=== PATIENT | male | born 1975 | race Caucasian/White ===

== ENCOUNTER → 2021-04-05 10:17 | Outpatient (BNVA) | payer BC, SELFPAY | PROVIDERS: PCP Internal Medicine; Visit Provider Nurse Practitioner Family ==

== ENCOUNTER → 2021-05-21 14:51 | Outpatient (BNVA) | payer BC, SELFPAY | PROVIDERS: PCP Internal Medicine; Visit Provider Nurse Practitioner Family ==

== ENCOUNTER 2021-07-16 08:47 | Outpatient (REF) | payer BC, SELFPAY ==
--- NOTE | ~2021-07-16 | MR_ITS ---
MRI OF THE BRAIN WITHOUT IV CONTRAST INDICATION: Chronic migraine without aura. COMPARISON: None available. TECHNIQUE: Multiplanar multisequence MR imaging of the brain was obtained without IV contrast. FINDINGS: There is no hydrocephalus, extra-axial surface collection, or herniation. No parenchymal signal abnormality. The major flow voids at the skull base are preserved. There is no acute infarct on diffusion-weighted imaging. There is no intracranial hemorrhage on the gradient recalled echo acquisition. The midline structures are normal. The cerebellar tonsils are normally positioned. The cerebellum and brainstem are normal. The craniocervical junction is normal. Osseous marrow signal intensity is homogenous. The visualized soft tissues are unremarkable. MR/MR head/brain wo con IMPRESSION: Unremarkable noncontrast MRI of the brain.
== END 2021-07-16 08:48 | disposition home or self-care (01) ==
LOC: HO.MRI 08:47
PROVIDERS: Visit Provider Nurse Practitioner Family
DX: G43.709 Chronic migraine without aura, not intractable, without status migrainosus (principal)
CPT/HCPCS: 70551

== ENCOUNTER → 2021-08-19 14:50 | Outpatient (BNVA) | payer BC, SELFPAY | PROVIDERS: PCP Internal Medicine; Visit Provider Nurse Practitioner Family | DX: G43.709 Chronic migraine without aura, not intractable, without status migrainosus (principal); M54.2 Cervicalgia ==

== ENCOUNTER 2023-01-04 14:49 | Outpatient (AMB) | payer OTHER, SELFPAY ==
--- NOTE | 2023-01-04 15:08 | MHC.OFFVIS ---
Intake Vital Signs 01/04/23 15:10 Height 5 ft 10 in Weight 151 lb BMI 21.7 BP 102/64 Blood Pressure Location Lt brachial Position Sitting Pulse 89 Pulse Source Pulse Oximeter Pulse Oximetry (%) 98 Oxygen Delivery Method Room Air Intake Visit Reasons: FOLLOW UP/Lvm Intake Note: Patient present today for increase PEREZ follow up visit. Patient states the medication helps with the headaches but only for about 2 weeks. Allergies No Known Allergies Allergy (Verified 01/04/23 15:19) Medication List - Last Reconciled 01/04/23 by Stella Alcantar CNP albuterol 90 mcg/actuation mcg inhalation PRN amitriptyline 10 mg PO BEDTIME 30 days baclofen 5 mg PO BEDTIME galcanezumab-gnlm (Emgality Pen) 120 mg subcut .qmonth 30 days levothyroxine 150 mcg PO DAILY magnesium oxide 400 mg PO BEDTIME omeprazole mg PO riboflavin (vitamin B2) 400 mg PO DAILY sildenafil 25 mg PO DAILY PRN sumatriptan succinate (Imitrex) take 1 tab at onset of headache; if no relief may repeat 1 tab after at least 2 hrs; max = 4 tabs/24 hr PO HPI HPI Comments History of Present Illness Details 47 y/o male patient presents for follow up visit of chronic migraine. Pt reports Emgality injection reduced migriane frequency to 1-2/ month. He gets migraine headache the prior week of Emgality injection, and uses sumatriptan 50 mg as needed. Pt tried topiramate 25 mg BID, magnesium 400 mg and baclofen 5 mg qHS and vitamin B2 400 mg q daily for migraine prevention. Pt reports difficulty sleeping. Amitriptyline 10 mg and baclofen 5 mg helps for neck pain and also help him sleep but he wakes up around 2 am. He watches TV before bedtime. [facility] Surgical History H/O arthroscopy of left knee Family History Mother No problems noted. Father No problems noted. Social History Alcohol intake: current Alcohol intake frequency: holidays/special occasions only Patient Tobacco Use Status: Never used Tobacco Review of Systems Const All systems reviewed & are unremarkable except as noted in HPI and below Physical Exam Vital Signs: Last Vital Signs Pulse 89 01/04/23 15:10 BP 102/64 01/04/23 15:10 Pulse Ox 98 01/04/23 15:10 Oxygen Delivery Method Room Air 01/04/23 15:10 BMI result Body Mass Index 21.7 Const General: cooperative and no acute distress Nutritional Appearance: average body habitus Orientation/consciousness: patient oriented x3 Limitations: no limitations HEENT Head: Yes normocephalic Neck Other: Bilateral trapezius muscle tightness. Neck: Yes full ROM and Yes supple Resp Effort & Inspection: normal respiratory effort and able to speak in complete sentences Neuro General: patient oriented x3, gait normal, moves all extremities, no focal motor deficits and CN's II-XI intact bilaterally Psych Appearance: grossly normal and well kempt Mental Status: mental status grossly normal Speech and movement: Normal speech and movement present Attitude: cooperative Assessment & Plan Assessment & Plan (1) Cervicalgia of pxmcnlai-vixzaxx-gkmht region: Code(s): M54.2 - Cervicalgia (2) Chronic migraine without aura, not intractable, without status migrainosus: Code(s): G43.709 - Chronic migraine without aura, not intractable, without status migrainosus (3) Sleeping difficulty: Code(s): G47.9 - Sleep disorder, unspecified Plan Continue to take monthly Emgality injection as patient experiences good clinical effects. Continue to take magnesium 400 mg qHS and vitamin B2 400 mg for migriane prevention. Use sumatriptan 50 mg as needed at onset of headache. May continue to use amitriptyline 10 mg and baclofen 5 mg for neck muscle tightness. Sleep hygiene education provided, limit watching TV before bedtime and try melatonin 3 mg qHS. Medications: New melatonin 3 mg PO BEDTIME 30 days PRN 30 tabs 6RF sleep Refilled galcanezumab-gnlm (Emgality Pen) 120 mg subcut .qmonth 30 days 1 mL 6RF magnesium oxide 400 mg PO BEDTIME 30 caps 2RF riboflavin (vitamin B2) 400 mg PO DAILY 30 tabs 6RF sumatriptan succinate (Imitrex) take 1 tab at onset of headache; if no relief may repeat 1 tab after at least 2 hrs; max = 4 tabs/24 hr PO 14 tabs 2RF Coding Level of Care Code Est Pt Level 4 (12334) Diagnoses Cervicalgia of vzfazted-sjyhnki-gsykj region M54.2 Chronic migraine without aura, not intractable, without status migrainosus G43.709 Sleeping difficulty G47.9
[2023-01-04 15:10] VITALS: BP 102/64; PULSE 89; O2SAT 98; BMI 21.7
== END 2023-01-04 15:29 | disposition home or self-care (01) ==
PROVIDERS: PCP Internal Medicine; Visit Provider Nurse Practitioner Family
DX: M54.2 Cervicalgia (principal); G43.709 Chronic migraine without aura, not intractable, without status migrainosus; G47.9 Sleep disorder, unspecified
CPT/HCPCS: 99214

== ENCOUNTER → 2023-01-04 14:49 | Outpatient (BNVA) | payer OTHER, SELFPAY | PROVIDERS: PCP Internal Medicine; Visit Provider Nurse Practitioner Family | DX: G43.709 Chronic migraine without aura, not intractable, without status migrainosus (principal); M54.2 Cervicalgia; G47.9 Sleep disorder, unspecified | CPT/HCPCS: 99212 ==

== ENCOUNTER → 2023-02-02 13:28 | Outpatient (BNVA) | payer OTHER, SELFPAY | PROVIDERS: PCP Internal Medicine; Visit Provider Nurse Practitioner Family ==

== ENCOUNTER 2024-12-27 14:48 | Outpatient (AMB) | payer OTHER, SELFPAY ==
--- NOTE | 2024-12-27 14:52 | A.OFFVIS_ITS ---
Vital Signs 12/27/24 14:53 Height 5 ft 10 in Weight 168 lb 4 oz BMI 24.1 BP 112/78 Blood Pressure Location Rt brachial Position Sitting Pulse 74 Pulse Source Pulse Oximeter Pulse Oximetry (%) 97 Oxygen Delivery Method Room Air Intake Visit Reasons: follow up meds Intake Note: Patient presents follow up Migraine Medication. Last seen 12/2022. Patient states gets some migraines bad. Gets about 10 migraines per month with Emgality which then take his Sumatriptan. would take Emgality then 2-3 days later gets migraines. Accompanied by: Self / Same As Patient Allergies No Known Allergies Allergy (Verified 12/27/24 15:00) HPI Comments Details: 49 y/o male patient presents for management of chronic migraines. He says he goes to bed at 9pm and wakes up at 5am. He has a difficult time staying asleep, he wakes up multiple times at night, tosses and turns. He snores loudly and gasps for air then wakes himself. He denies parasomnias, bruxism and jaw pain. He has GERD which used to be terrible when laying flat. Now it is better managed with omeprazole. He denies RLS symptoms, he denies paresthesias, cramps or an uncomfortable sensations in his feet which keep him up at night. Pt reports since he started Emgality injections, his migraine frequency reduced from 10 migraines a month to about 1-2 migraines per month. He notices they are worse when driving and the sunlight makes him feel as though he has motion sickness. He wears sunglasses and still has continuous headaches. He recently had an eye exam, his vision changed and is blurry, he recently picked up his new glasses. The last week prior to his Emgality injection is when he notices an increase in the smaller 2-3 hour lasting headaches and he always has to adjunct with Sumatriptan 50mg for these episodic headaches and he dislikes the taste of Sumatriptan and it lacks efficacy. He watches tv to help him fall asleep, and denies coffee, smoking or MJ use. Migraine Characteristics Always starts from the middle of the eyes then travels to the back of his head, the neck gets tender to touch and he can not lay on his pillow, he has to sit up. He has Photophobia/ phonophboia denies triggers to smells, he denies vomiting, he gets nausea, gets dizzy has vertigo like spinning and then feels motion sickness. Sugar and Chocolate can also be triggers. [facility] Surgical History H/O arthroscopy of left knee Family History Mother No problems noted. Father No problems noted. Social History Alcohol intake: current Alcohol intake frequency: holidays/special occasions only Patient Tobacco Use Status: Never used Tobacco Physical Exam Vital Signs: Last Vital Signs Pulse 74 12/27/24 14:53 BP 112/78 12/27/24 14:53 Pulse Ox 97 12/27/24 14:53 Oxygen Delivery Method Room Air 12/27/24 14:53 BMI result Body Mass Index 24.1 Const General: cooperative and comfortable Nutritional Appearance: average body habitus Orientation/consciousness: patient oriented x3 HEENT Face and sinus: Yes face symmetric Throat: Yes other (Mallmapti score is 4) Eyes Pupils: Equal, round and reactive pupils present Neck Other: limited rom bilaterally Resp Effort & Inspection: normal respiratory effort and able to speak in complete sentences Neuro Other: stiff neck, difficulty with bilateral rom, limited General: patient oriented x3 and moves all extremities Cranial nerves: Yes Facial sensation intact/muscles of mastication intact, Yes Equal, round and reactive pupils present, Yes Normal accommodation reflex present, Yes Normal facial strength present, Yes Midline tongue present, Yes Ability to bilaterally rotate head present and Yes Ability to bilaterally elevate shoulders present Cognition (Neuro): normal cognition Gait exam (Neuro): Normal gait present Motor exam (neuro): 5/5 motor strength present throughout and Normal motor muscle tone present throughout Psych Appearance: grossly normal Speech and movement: Normal speech and movement present Thought process: Normal thought process present Assessment & Plan Assessment & Plan (1) Excessive daytime sleepiness: Code(s): G47.19 - Other hypersomnia Category: Medical (2) Chronic migraine without aura, not intractable, without status migrainosus: Code(s): G43.709 - Chronic migraine without aura, not intractable, without status migrainosus Category: Medical (3) Sleeping difficulty: Code(s): G47.9 - Sleep disorder, unspecified Category: Medical (4) Anemia: Code(s): D64.9 - Anemia, unspecified Category: Medical Qualifiers: Anemia type: iron deficiency Iron deficiency anemia type: other iron deficiency Qualified Code(s): D50.8 - Other iron deficiency anemias (5) Cervicalgia of khmavzxw-yuwbzvg-lzdmn region: Code(s): M54.2 - Cervicalgia Category: Medical Plan LAURA will r/o with HST, may take melatonin 3-6mg po daily at bedtime. Cervicalgia continue Amitriptyline 10mg po for neck pain and sleep difficulties, continue Baclofen for Stiff neck muscles. topiramate 25 mg BID, magnesium 400 mg and baclofen 5 mg qHS and vitamin B2 400 mg q daily for migraine prevention. Chronic Migraines Continue to take monthly Emgality 120mg subq monthly injection as patient experiences good clinical effects. Start Ubrelvy 50mg po Migraine Prevention to hep decrease the severity. Episodic Headaches Start Rizatriptan 5mg po every 2-4 hours for episodic headaches, do not take more than 6 doses or 30mg po total w/ in 24 hours. Continue to take magnesium 400 mg qHS and vitamin B2 400 mg for migraine prevention. Topiramate 25 mg po BID, can help to decrease severity but does not resolve headache, he has partial improvement. Continue magnesium 400 mg, vitamin B2 400 mg q daily for migraine prevention. Past Medications Tried for Migraines: Sumatriptan 50mg po lacks efficacy, and he gets a metallic taste in his mouth. Will stop Sumatriptan once Ubrelvy is approved. Dramamine for motion sickness, Nausea, Vertigo, dizziness. Sleep hygiene education provided, limit watching TV before bedtime and try melatonin 3-6 mg 3 hours prior to bedtime. limit fluids prior to bedtime. May diffuse essential oils, or play white noise. lower temperatures in the bedroom. F/U in 3 months Orders: Orders RT home sleep study 12/27/24 G47.19 - Other hypersomnia Comprehensive Met. Panel Today D64.9 - Anemia, unspecified, G47.19 - Other hypersomnia Ferritin Today D64.9 - Anemia, unspecified, G47.19 - Other hypersomnia Homocysteine Today D64.9 - Anemia, unspecified, G47.19 - Other hypersomnia, G47.9 - Sleep disorder, unspecified, R53.83 - Other fatigue Vitamin D 25-OH Total Today D64.9 - Anemia, unspecified, G47.19 - Other hypersomnia Vitamin B12 and Folate Today D64.9 - Anemia, unspecified, G47.19 - Other hypersomnia TSH reflex Free T4 Today D64.9 - Anemia, unspecified, G47.19 - Other hypersomnia Complete Blood Count no Diff Today D64.9 - Anemia, unspecified, G47.19 - Other hypersomnia Methylmalonic Acid Today D64.9 - Anemia, unspecified, G47.19 - Other hypersomnia, G47.9 - Sleep disorder, unspecified, R53.83 - Other fatigue Medications: New ubrogepant (Ubrelvy) take daily one talbet daily for chronic migraine prevention. 50 mg PO DAILY 30 tabs 3RF migraines 30 days MDD 50mg po G43.709 - Chronic migraine without aura, not intractable, without status migrainosus rizatriptan do not exceed 6 doses per 24 hrs 5 mg PO Q2-4H PRN 10 tabs 0RF migraine headache 1 month MDD 30mg G43.709 - Chronic migraine without aura, not intractable, without status migrainosus, G47.9 - Sleep disorder, unspecified Refilled galcanezumab-gnlm (Emgality Pen) 120 mg subcut .qmonth 1 mL 6RF 30 days baclofen 5 mg PO BEDTIME 30 tabs 2RF Patient Instructions: Sleep Hygiene provided: set a scheduled bedtime and wake time to help regulate the circadian rhythm and balance the release of pituitary hormones. Sleep in a dark room, temperatures below 68 degrees, and no devices n bed. Limit caffeinated products 6 hours prior to bed, and limit fluids 2-4 hours prior to bed. Gentle night yoga, diffusing essential oils, and playing soft music can be relaxing. Coding Level of Care Code New Pt Level 4 (51383) Diagnoses Excessive daytime sleepiness G47.19 Chronic migraine without aura, not intractable, without status migrainosus G43.709 Sleeping difficulty G47.9 Other iron deficiency anemia D50.8 Anemia type: iron deficiency Iron deficiency anemia type: other iron deficiency Cervicalgia of sbvhtoha-wiisetd-ixewz region M54.2
[2024-12-27 14:53] VITALS: BP 112/78; PULSE 74; O2SAT 97; BMI 24.1
== END 2024-12-27 15:33 | disposition home or self-care (01) ==
LOC: HO.HSMS 14:49
PROVIDERS: PCP Internal Medicine; Visit Provider Physician Assistant Medical
DX: G47.19 Other hypersomnia (principal); G43.709 Chronic migraine without aura, not intractable, without status migrainosus; G47.9 Sleep disorder, unspecified; D50.8 Other iron deficiency anemias; M54.2 Cervicalgia
CPT/HCPCS: 99204

== ENCOUNTER → 2024-12-27 14:48 | Outpatient (BNVA) | payer OTHER, SELFPAY | PROVIDERS: PCP Internal Medicine; Visit Provider Physician Assistant Medical | DX: G47.19 Other hypersomnia (principal); G43.709 Chronic migraine without aura, not intractable, without status migrainosus; G47.9 Sleep disorder, unspecified; D50.8 Other iron deficiency anemias; M54.2 Cervicalgia | CPT/HCPCS: 99202 ==